=== PATIENT | male | born 1985 ===

== ENCOUNTER 2017-01-22 13:15 | Emergency (ER) | payer OTHER ==
[2017-01-22] MEDS ORDERED: KETOROLAC TROMETHAMINE 60 MG/2 ML VIAL IM ONE (13:21)
[2017-01-22] MEDS ORDERED: DIPHTH,PERTUSS(ACELL),TET 0.5 ML DISP.SYRIN IM ONE (13:21)
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
[2017-01-22 13:38] VITALS: BP 135/89; PULSE 75; TEMP 98; BMI 28.8
[2017-01-22] MEDS ORDERED: KETOROLAC TROMETHAMINE 60 MG/2 ML VIAL ONE (13:44)
== END 2017-01-22 14:45 | disposition home or self-care (01) ==
LOC: FER 13:15
PROC: 3E0234Z Introduction of Serum, Toxoid and Vaccine into Muscle, Percutaneous Approach (ICD-10-PCS; principal; 2017-01-22)
PROC: 3E0233Z Introduction of Anti-inflammatory into Muscle, Percutaneous Approach (ICD-10-PCS; 2017-01-22)
DX: T14.8 Other injury of unspecified body region (principal); V03.90XA Pedestrian on foot injured in collision with car, pick-up truck or van, unspecified whether traffic or nontraffic accident, initial encounter; Y93.89 Activity, other specified; Y92.410 Unspecified street and highway as the place of occurrence of the external cause
CPT/HCPCS: 73560-TC-RT; 73590-TC-LT; 73590-TC-RT; 73610-TC-LT; 73610-TC-RT; 73630-TC-LT; 73630-TC-RT; 90715; 99282-25